=== PATIENT | male | born 1960 | race Caucasian/White ===

== ENCOUNTER → 2018-06-11 10:19 | Outpatient (CLI) | payer OTHER, SELFPAY ==
[2018-06-11 10:22] LABS: Adenovirus,PCR Not Detected (NotDetected); Bordetella Pertussis Not Detected (NotDetected); Chlamydophila Pneumoniae, PCR Not Detected (NotDetected); Coronavirus 229E Not Detected (NotDetected); Coronavirus NL63 Not Detected (NotDetected); Coronavirus OC43 Not Detected (NotDetected); Coronovirus HKU1,PCR Not Detected (NotDetected); Human Metapneumovirus Not Detected (NotDetected); Influenza A, PCR Not Detected (NotDetected); Influenza AH1, 2009 Not Detected (NotDetected); Influenza AH1, PCR Not Detected (NotDetected); Influenza AH3,PCR Not Detected (NotDetected); Influenza B, PCR Not Detected (NotDetected); Mycoplasma Pneumoniae, PCR Not Detected (NotDected); Parainfluenza 1, PCR Not Detected (NotDetected); Parainfluenza 2, PCR Not Detected (NotDetected); Parainfluenza 3, PCR Not Detected (NotDetected); Parainfluenza 4, PCR Not Detected (NotDetected); Respiratory Syncytial Virus Not Detected (NotDetected); Rhinovirus/Enterovirus Not Detected (NotDetected)
== END ==
LOC: LAB 10:20 → LAB.CARL 06-12 07:21
PROVIDERS: PCP Physician Assistant; Visit Provider Physician Assistant
DX: R50.9 Fever, unspecified (principal); R05 Cough
CPT/HCPCS: 87486; 87581; 87633; 87798

== ENCOUNTER → 2019-06-25 06:13 | Outpatient (CLI) | payer SELFPAY ==
--- NOTE | 2019-06-25 | CT_ITS ---
PROCEDURE: CT HEART W CALCIUM SCORE CLINICAL HISTORY: CHEST PAIN SOB COMPARISON: No exams were available for comparison TECHNIQUE: Axial images obtained with sagittal and coronal reformats. All CT scans at the facility use one or more dose reduction, viz: automated exposure control, ma/kV adjustment per patient size (including targeted exams where dose is matched to indication, i.e. head), or iterative reconstruction technique. FINDINGS: Coronary artery calcium score is 0 indicating no identifiable atherosclerotic plaque with very low cardiovascular disease risk. Incidental note made of a calcified granuloma in the right middle lobe. IMPRESSION: No identifiable atherosclerotic plaque with very low cardiovascular disease risk Dictated by: Gabe Harper MD 06/25/2019 19:07 Electronically signed by Gabe Harper MD in [facility] 06/25/2019 19:07
== END ==
PROVIDERS: PCP Nurse Practitioner Family; Visit Provider Internal Medicine Cardiovascular Disease
DX: Z13.6 Encounter for screening for cardiovascular disorders (principal)
CPT/HCPCS: 75571

== ENCOUNTER → 2019-06-25 06:14 | Outpatient (CLI) | payer OTHER, SELFPAY ==
--- NOTE | 2019-06-25 | CA_ITS ---
APPROVED REPORT Exam: Exercise Treadmill Technologist: Ashlie Bonilla, Ht: 6 ft 0 in Wt: 185 lbs BSA: 2.06 m2 HR: 45 bpm BP: 141/78 mmHg Indications: Shortness of Breath, Chest pain Medical History Medications: Levothyroxine,,,,, Zetia,,,,, Stress Test Details Test: Sachin HR Resting HR: 51 bpm Max Heart Rate (APMHR): 162 bpm Max HR Achieved: 150 bpm Target HR (85% APMHR): 137 bpm % of APMHR: 92 Recovery HR: 59 bpm BP Resting BP: 141/78 mmHg Max BP: 166/70 mmHg Recovery BP: 143.0/75.0 mmHg ECG Clinical Exercise duration: 13:30 min Highest Stage Achieved: Exercise capacity: 14.8 METs Stress ECG Conclusion Resting ECG: Marked sinus bradycardia, right axis deviation, ST-T abnormalities in III, aVF Patient exercised 13:30 on Sachin Protocol. Test Stopped Due To: Shortness of Air, Fatigue Symptoms: No Chest Pain Arrhythmias/Ectopy: Occasional PVC ST-T Changes: Normal ST response to exercise. Conclusion: Normal GXT - Good exercise tolerance. Myoview images reported separately. Test Summary REST . . . . . . . Sitting REST . . . . . . . Standing REST 13:49 0.0 0.0 51 . 141/ 78 . . Stage 1 01:00 10.0 1.7 69 . . . . Stage 1 02:00 10.0 1.7 70 . . . . Stage 1 03:00 10.0 1.7 73 . . . . Stage 2 01:00 12.0 2.5 80 . . . . Stage 2 02:00 12.0 2.5 79 . . . . Stage 2 03:00 12.0 2.5 83 . 145/ 70 . . Stage 3 01:00 14.0 3.4 93 . . . . Stage 3 02:00 14.0 3.4 102 . . . . Stage 3 03:00 14.0 3.4 103 . 166/ 70 . . Stage 4 01:00 16.0 4.2 113 . . . . Stage 4 02:00 16.0 4.2 123 . . . . Stage 4 03:00 16.0 4.2 130 . . . . Stage 5 . . . . . . . Myoview Injected Stage 5 01:00 18.0 5.0 145 . . . . Stage 5 01:30 18.0 5.0 149 . . . Stop exercise at 13:30 RECOVERY 01:00 0.0 0.0 111 . 154/ 70 . . RECOVERY 02:00 0.0 0.0 79 . 154/ 70 . . RECOVERY 03:00 0.0 0.0 67 . 154/ 70 . . RECOVERY 04:00 0.0 0.0 58 . 154/ 70 . . RECOVERY 05:00 0.0 0.0 59 . 166/ 70 . . RECOVERY 05:58 0.0 0.0 61 . 143/ 75 . . Electronically signed by : Shahab Benitez, 06/25/2019 20:45:48
--- NOTE | 2019-06-25 06:17 | NM_ITS ---
APPROVED REPORT Exam: Nuclear Stress Test Indication: PALPITATIONS, FATIGUE Patient Location: Outpatient Stress Tech: Ashlie Bonilla [place] Tech:KAROL Hwang RT(R)(N) Ht: 6 ft 0 in Wt: 185 lbs BSA: 2.06 m2 HR: 45 bpm BP: 141/78 mmHg History: PALPITATIONS, FATIGUE Procedure: Patient exercised on Sachin protocol 13 minutes and sec, resting heart rate 45 bpm, resting blood pressure 141/78 mmHg, with exercise maximum heart rate achived was 150 bpm which is Greater than 85 % of the maximum predicted heart rate and blood pressure was 166/70 mmHg. Test was stopped due to Shortness of breath. Patient denied any complaint of chest pain. Patient has Excellent exercise capacity, achieved 14.8 METs of workload on treadmill, the blood pressure response to exercise was Adequate. Electrocardiogram Resting electro cardiogram showed sinus rhythm right ventricular conduction delay, with exercise less than 1.[address] segment depression noted from the baseline EKG. The EKG portion of the exercise Myoview is negative for ischemia. Cardiac Stress and Resting SPECT Images: Cardiac Stress and Resting SPECT images were obtained using technetium 99m Myoview 30.2 mCi stress and 9.98 mCi at rest. Gated SPECT with analysis of segmental wall motion and calculation of the ejection fraction also done. Cardiac stress and resting SPECT images show uniform myocardial activity without segmental perfusion abnormality, computer derived ejection fraction is over 65% with no regional wall motion abnormality, right ventricle is normal size and contractility. Conclusion: 1. The EKG portion of the exercise Myoview is negative for ischemia, patient has excellent exercise capacity achieved 14.8 mets of workload on treadmill, the blood pressure response to exercise was adequate, there was no exercise-induced chest discomfort. 2. No scintigraphic evidence of reversible ischemia seen at this level of exercise, computer derived ejection fraction is over 65% with no regional wall motion abnormality, right ventricle is normal size and contractility. 3. Normal exercise Myoview study. Electronically signed by : Shahab Benitez, 06/25/2019 20:54:47
--- NOTE | 2019-06-25 06:17 | CA_ITS ---
APPROVED REPORT EXAM: Comprehensive 2D, Doppler, and color-flow Echocardiogram Sales Vendor: Suze Kent RDCS Ht: 6 ft 0 in Wt: 192lbs BSA: 2.09 BP: 132/87 mmHg Indications: Chest Pain, Murmur, Shortness of Breath, Syncope, Palpitations, Hyperlipidemia 2D Dimensions LVOT 2.30 cm (M/F) 1.5-2.5 M-Mode Dimensions RVDd 3.10 cm (0.9-2.6) LA Diam 2.50 cm (1.9-4.0) LVDd 6.00 cm (3.5-5.7) Ao Diam 3.60 cm (2.0-3.7) LVDs 4.50 cm (3.5-5.7) AV Cusp 2.10 cm (1.5-2.6) IVSd 0.80 cm (0.6-1.1) PWd 0.80 cm (0.6-1.1) EF (Teich) 48.70% FS 25.00% EDV (Teich) 180.00 mL ESV (Teich) 92.40 mL LV Diastology E/A Ratio 1.0 MED E' 8.48 (< 7 cm/sec) E'/MED E' Ratio 8.10 (>14) LAT E' 6.92 (<10 cm/sec) E/LAT E' Ratio 10.00 (>14) Mitral Valve MV E Max Ifeanyi. 69.10 (40-130 cm/s) MV A Velocity 66.60 (40-130 cm/s) E/A Ratio 1.00 Left Ventricle Left atrium is normal size, left ventricle is normal size, there is no concentric left ventricular hypertrophy, visually estimated ejection fraction 55% with no regional wall motion abnormality. Right Ventricle Right atrium and right ventricle mildly enlarged with normal contractility. Aortic Valve Aortic valve is minimally thickened and fibrosed, there is no aortic stenosis aortic insufficiency. Mitral Valve Mitral valve is grossly normal, there is mild mitral regurgitation. Tricuspid Valve Tricuspid valve is grossly normal, there is mild tricuspid regurgitation, tricuspid regurgitation jet velocity is inadequate for cannulation of the right ventricular systolic pressure. Pulmonic Valve Pulmonic valve is poorly visualized. Great Vessels Aortic root is normal size. Pericardium No significant pericardial effusion noted Conclusion 1. Normal left ventricular size, preserved left ventricular systolic function, visually estimated ejection fraction of 55% with no regional wall motion abnormality. Diastolic parameters are inconclusive. 2. Mildly enlarged right atrium and right ventricle, contractility of the right ventricle is normal. 3. Mild mitral and tricuspid regurgitation 4. No significant pericardial effusion noted. Electronically signed by : Shahab Benitez, 06/26/2019 06:24:41
--- NOTE | 2019-06-25 09:43 | HMH.ITSHM ---
Current Home Medications as stated by this patient Evin Rodrigez or technical sales representative. [] levothyroxine zetia
== END ==
PROVIDERS: PCP Nurse Practitioner Family; Visit Provider Internal Medicine Cardiovascular Disease
DX: R06.02 Shortness of breath (principal); R07.9 Chest pain, unspecified; R55 Syncope and collapse; R42 Dizziness and giddiness
CPT/HCPCS: 78452; 93017; 93306; A9502

== ENCOUNTER → 2019-07-09 14:59 | Outpatient (CLI) | payer OTHER, SELFPAY ==
[2019-07-19 18:08] LABS: Ca oxalate dihydrate 45 % (.)
[2019-07-20 20:00] LABS: Specimen Type Comment: (.)
== END ==
PROVIDERS: Visit Provider Urology
DX: N20.0 Calculus of kidney (principal)
CPT/HCPCS: 82370